=== PATIENT | male | born 1955 | race American Indian/Alaskan Native ===

== ENCOUNTER 2016-06-17 09:03 | Emergency (ER) | payer OTHER ==
[2016-06-17 09:12] VITALS: TEMP 97.5; BMI 23.6
[2016-06-17] MEDS ORDERED: Sodium Chloride 0.9% 1,000 ML IV STA (09:28)
--- NOTE | 2016-06-17 09:34 | ED PDOC ---
Arrival/HPI - General Time Seen by Provider: 06/17/16 09:19 Historian: Patient - History of Present Illness Narrative History of Present Illness (Text): 06/17/16 09:31 60yo male with no PMHx who present with complaint of generalized sharp abdominal pain x 2weeks. States pain is usually worse in the morning, but he goes to work and tries to ignore the pain. Reports straining with BM for the past two weeks, but no constipation. Denies nausea, vomiting, diarrhea, melena, hematemesis, urinary symptoms, chest pain, SOB, fever, chills, any other complaint. Did not take any medication. He have not done Colonoscopy. Past Medical History - Provider Review Nursing Documentation Reviewed: Yes Family/Social History - Physician Review Nursing Documentation Reviewed: Yes Family/Social History: Unknown Family HX Allergies/Home Meds Allergies/Adverse Reactions: Allergies No Known Allergies Allergy (Verified 06/17/16 09:11) Review of Systems - Physician Review All systems were reviewed & negative as marked: Yes - Review of Systems Constitutional: Normal Eyes: Normal ENT: Normal Respiratory: Normal Cardiovascular: Normal Gastrointestinal: Abdominal Pain. absent: Constipation, Diarrhea, Nausea, Vomiting, Hematochezia, Hematemesis Genitourinary Male: Normal Musculoskeletal: Normal Skin: Normal Neurological: Normal Endocrine: Normal Hemo/Lymphatic: Normal Psychiatric: Normal Physical Exam Vital Signs Reviewed: Yes Vital Signs Temp Pulse Resp BP Pulse Ox 06/17/16 11:03 62 16 127/75 99 06/17/16 09:03 97.5 F L 64 16 127/82 99 Temperature: Afebrile Blood Pressure: Normal Pulse: Regular Respiratory Rate: Normal Appearance: Positive for: Well-Appearing, Non-Toxic, Comfortable Pain Distress: None Mental Status: Positive for: Alert and Oriented X 3 - Systems Exam Head: Present: Atraumatic, Normocephalic Pupils: Present: PERRL Extroacular Muscles: Present: EOMI Conjunctiva: Present: Normal Mouth: Present: Moist Mucous Membranes Neck: Present: Normal Range of Motion Respiratory/Chest: Present: Clear to Auscultation, Good Air Exchange. No: Respiratory Distress, Accessory Muscle Use Cardiovascular: Present: Regular Rate and Rhythm, Normal S1, S2. No: Murmurs Abdomen: Present: Tenderness (Diffuse), Normal Bowel Sounds (Hyperactive x 4), Other (Soft). No: Distention, Peritoneal Signs, Rebound, Guarding, McBurney's Point Tender, Rovsing's Sign Present Back: Present: Normal Inspection Upper Extremity: Present: Normal Inspection. No: Cyanosis, Edema Lower Extremity: Present: Normal Inspection. No: Edema Neurological: Present: GCS=15, CN II-XII Intact, Speech Normal Skin: Present: Warm, Dry, Normal Color. No: Rashes Psychiatric: Present: Alert, Oriented x 3, Normal Insight, Normal Concentration Medical Decision Making ED Course and Treatment: 06/17/16 09:50 Pt in ED for diffuse abdominal pain x 2weeks. Lab ordered Abdominal CT ordered 1L NS, Pepcid ordered Will re evaluate 06/17/16 09:54 EKG Sinus kim with RBBB @58bpm 06/17/16 11:20 On re evaluation patient states his pain improved. He was laying down comfortably. Lab was unremarkable. Abdominal CT IMPRESSION: Poorly distended urinary bladder. Nevertheless, the bladder wall appears somewhat thickened. Consider correlation with urinalysis for evaluation of possible cystitis. The remainder of the examination is unremarkable. Limited examination due to patient motion artifact. Result was DW the pt. Patient have denied urinary symptoms while in ED and UA was negative. Pt pain is likely secondary to gastritis. He was advised for f/u with a GI for possible colonoscopy. Rx of Protonix was given and he was advised to avoid acidic foods. TRT ED for any new or worsening symptoms. - Lab Interpretations Lab Results: 06/17/16 09:25 06/17/16 09:25 Lab Results 06/17/16 09:25: WBC 12.0 H, RBC 4.77, Hgb 14.2, Hct 41.4 L, MCV 86.8, MCH 29.8, MCHC 34.3, RDW 14.0, Plt Count 338, MPV 8.9, Gran % 78.0 H, Lymph % (Auto) 12.0 L, Schley % (Auto) 7.8 H, Eos % (Auto) 1.9, Baso % (Auto) 0.3, Gran # 9.36 H, Lymph # 1.4, Schley # 0.9 H, Eos # 0.2, Baso # 0.04, PT 10.3, INR 0.95, APTT 27.5 , Sodium 140, Potassium 4.2, Chloride 103, Carbon Dioxide 30, Anion Gap 11, BUN 9, Creatinine 0.8, Est GFR ( Amer) > 60, Est GFR (Non-Af Amer) > 60, Random Glucose 98, Calcium 8.8, Total Bilirubin 0.6, AST 28, ALT 32, Alkaline Phosphatase 75, Lactate Dehydrogenase 536, Total Creatine Kinase 169, Troponin I < 0.01, Total Protein 7.6, Albumin 3.9, Globulin 3.7, Albumin/Globulin Ratio 1.1, Amylase 120, Lipase 139, Urine Color Yellow, Urine Appearance Clear, Urine pH 6.0, Ur Specific Coleridge >= 1.030, Urine Protein Negative, Urine Glucose (UA ) Negative, Urine Ketones Negative, Urine Blood Negative, Urine Nitrate Negative , Urine Bilirubin Negative, Urine Urobilinogen 0.2, Ur Leukocyte Esterase Negative - RAD Interpretation Radiology Orders: 06/17/16 10:17 ABD & PELVIS W/O PO OR IV CONT [CT] Stat - EKG Interpretation Interpreted by ED Physician: Yes (Sinus kim with RBBB @ 58bpm) - Medication Orders Current Medication Orders: Sodium Chloride (Sodium Chloride 0.9%) 1,000 mls @ 100 mls/hr IV .Q10H STA Stop: 06/17/16 19:27 Last Admin: 06/17/16 10:11 Dose: 100 MLS/HR eMAR Start Stop Document 06/17/16 10:11 [facility] (Rec: 06/17/16 10:12 [facility] [id number]) Intravenous Solution Start Date 06/17/16 Start Time 10:00 Discontinued Medications Famotidine (Pepcid) 20 mg IVP STAT STA Stop: 06/17/16 09:29 Last Admin: 06/17/16 10:00 Dose: 20 MG IVP Administration Document 06/17/16 10:00 [facility] (Rec: 06/17/16 10:12 [facility] [id number]) Charges for Administration # of IVP Administrations 1 Disposition/Present on Arrival - Present on Arrival Any Indicators Present on Arrival: No History of DVT/PE: No History of Uncontrolled Diabetes: No Urinary Catheter: No History of Decub. Ulcer: No History Surgical Site Infection Following: None - Disposition Have Diagnosis and Disposition been Completed?: Yes Diagnosis: Abdominal pain Disposition: HOME/ ROUTINE Disposition Time: 11:25 Patient Plan: Discharge Condition: STABLE Discharge Instructions (ExitCare): Acute Abdominal Pain (ED) Additional Instructions: Follow up with a Sales Operations Director Avoid acidic foods Return to ED for any new or worsening symptoms Prescriptions: Pantoprazole Sodium [Protonix] 20 mg PO DAILY #15 tablet.dr Referrals: Hossein Ag MD [Primary Care Provider] - Follow up with primary Adelso Mcclelland DO [Staff Provider] - Follow up with primary
[2016-06-17 10:07] LABS: ADD MANUAL DIFF? NO
[2016-06-17 10:18] LABS: BASO # 0.04 K/mm3 (0.0-2.0); BASO % 0.3 % (0.0-3.0); EOS # 0.2 (0.0-0.7); EOS % 1.9 % (1.5-5.0); GRAN # 9.36 (1.4-6.5); HEMATOCRIT 41.4 % (42.0-52.0); LYMPH # 1.4 (1.2-3.4); MEAN CELL VOLUME 86.8 fL (80.0-105.0); MEAN CORPUSCULAR HEMOGLOBIN 29.8 pg (25.0-35.0); MEAN CORPUSCULAR HGB CONC 34.3 g/dl (31.0-37.0); MEAN PLATELET VOLUME 8.9 fl (7.0-11.0); MONO # 0.9 (0.1-0.6); MONO % 7.8 % (1.0-6.0); PLATELET COUNT 338 10^3/uL (120.0-450.0)
[2016-06-17 10:21] LABS: URINE APPEARANCE CLEAR (CLEAR); URINE BILIRUBIN NEGATIVE (NEGATIVE); URINE BLOOD NEGATIVE (NEGATIVE); URINE COLOR YELLOW (YELLOW); URINE GLUCOSE (UA) NEGATIVE (NEGATIVE); URINE KETONE NEGATIVE (NEGATIVE); URINE LEUKOCYTE ESTERASE NEGATIVE Leu/uL (NEGATIVE); URINE PROTEIN NEGATIVE mg/dL (<30 mg/dL); URINE UROBILINOGEN 0.2 E.U./dL (<1 E.U./dL)
[2016-06-17 10:24] LABS: INR 0.95 (0.93-1.08); PARTIAL THROMBOPLASTIN TIME 27.5 Seconds (23.7-30.8)
[2016-06-17 10:25] LABS: ALB/GLOB RATIO 1.1 (1.1-1.8); ALKALINE PHOSPHATASE 75 U/L (38-133); ALT/SGPT 32 U/L (7-56); AMYLASE 120 U/L (35-125); AST/SGOT 28 U/L (15-59); BILIRUBIN,TOTAL 0.6 mg/dL (0.2-1.3); BLOOD UREA NITROGEN 9 mg/dL (7-21); CALCIUM 8.8 mg/dL (8.4-10.5); CARBON DIOXIDE 30 mmol/L (21-33); CHLORIDE 103 mmol/L (98-107); GFR AFRICAN-AMERICAN > 60; GLUCOSE,RANDOM 98 mg/dL (70-110); LIPASE 139 U/L (23-300); POTASSIUM 4.2 mmol/L (3.6-5.0); SODIUM 140 mmol/L (132-148); TOTAL PROTEIN 7.6 g/dL (5.8-8.3)
[2016-06-17 10:37] LABS: TROPONIN I < 0.01 ng/mL
[2016-06-17 11:07] VITALS: BP 127/75
--- NOTE | 2016-06-17 11:18 | CT ---
PROCEDURE: CT Abdomen and Pelvis without intravenous contrast HISTORY: abdominal pain COMPARISON: None. TECHNIQUE: Without contrast.. Contrast Dose: 0 Radiation dose: Total exam DLP = not reported mGy-cm. This CT exam was performed using one or more of the following dose reduction techniques: Automated exposure control, adjustment of the mA and/or kV according to patient size, and/or use of iterative reconstruction technique. FINDINGS: Please note that this examination is limited by patient motion artifact. LOWER THORAX: Unremarkable. LIVER: Unremarkable. No gross lesion or ductal dilatation. GALLBLADDER AND BILE DUCTS: Unremarkable. PANCREAS: Unremarkable. No gross lesion or ductal dilatation. SPLEEN: Unremarkable. ADRENALS: Unremarkable. No mass. KIDNEYS AND URETERS: Unremarkable. No hydronephrosis. No solid mass. VASCULATURE: Unremarkable. No aortic aneurysm. BOWEL: Unremarkable. No obstruction. No gross mural thickening. APPENDIX: Unremarkable. Normal appendix. PERITONEUM: Unremarkable. No free fluid. No free air. LYMPH NODES: Unremarkable. No enlarged lymph nodes. BLADDER: Urinary bladder wall is thickened. The bladder is poorly distended. This may be artifactual but consideration should be given to correlation with urinalysis for evaluation of possible cystitis. REPRODUCTIVE: Normal prostate BONES: No acute fracture. OTHER FINDINGS: None. IMPRESSION: Poorly distended urinary bladder. Nevertheless, the bladder wall appears somewhat thickened. Consider correlation with urinalysis for evaluation of possible cystitis. The remainder of the examination is unremarkable. Limited examination due to patient motion artifact.
[2016-06-17 12:00] VITALS: PULSE 63; RESP 18; O2SAT 97
--- NOTE | 2016-06-18 11:12 | CARD ---
APPROVED REPORT EKG Measurement Heart [id number] <Conclusion> Sinus bradycardia Right bundle branch block
== END 2016-06-17 12:05 | disposition home or self-care (01) ==
LOC: ED 09:03
DX: R10.9 Unspecified abdominal pain (principal)
CPT/HCPCS: 74176; 80053; 81003; 82150; 82550; 83615; 83690; 84484; 85025; 85610; 85730; 93005; 96374; 99281; J7040